=== PATIENT | female | born 1990 | race Two or more races ===

== ENCOUNTER 2019-05-25 18:42 | Emergency (ER) | payer BC ==
--- NOTE | 2019-05-25 19:15 | EDM.PDOC ---
ED HPI GENERAL MEDICAL PROBLEM - General Chief Complaint: Abdominal Pain Stated Complaint: ABD PAIN Time Seen by Provider: 05/25/19 19:05 Source of Information: Reports: Patient History Limitations: Reports: No Limitations - History of Present Illness INITIAL COMMENTS - FREE TEXT/NARRATIVE: HISTORY AND PHYSICAL: History of present illness: Patient is a 28-year-old female presents to the ED today with concern of right upper quadrant pain that is worse after eating. Patient states this has been ongoing for the past 2 weeks but today the last time she ate was 2 PM and she started having upper abdominal pain. Patient states she hesitates to eat due to the pain. Patient states currently the pain is only a 2 out of 10 but knows that if she went to go eat it would return. Patient denies any nausea or vomiting or any other associated symptoms. Patient denies any health history. Patient denies fever, chills, chest pain, shortness of breath, or cough. Denies headache, neck stiff ness, change in vision, syncope, or near syncope. Denies nausea, vomiting, diarrhea, constipation, or dysuria. Has not noted any blood in urine or stool. Patient has been eating and drinking appropriately. Review of systems: As per history of present illness and below otherwise all systems reviewed and negative. Past medical history: As per history of present illness and as reviewed below otherwise noncontributory. Surgical history: As per history of present illness and as reviewed below otherwise noncontributory. Social history: See social history for further information Family history: As per history of present illness and as reviewed below otherwise noncontributory. Physical exam: General: Patient is alert, oriented, and in no acute distress. Patient sitting comfortably on exam table. HEENT: Atraumatic, normocephalic, pupils equal and reactive bilaterally, negative for conjunctival pallor or scleral icterus, mucous membranes moist, TMs normal bilaterally, throat clear, neck supple, nontender, trachea midline. No drooling or trismus noted. No meningeal signs. No hot potato voice noted. Lungs: Clear to auscultation, breath sounds equal bilaterally, chest nontender. Heart: S1S2, regular rate and rhythm without overt murmur Abdomen: Soft, nondistended. Mild right upper quadrant tenderness without guarding. Negative Sawyer sign. Negative for masses or hepatosplenomegaly. Negative for costovertebral tenderness. Pelvis: Stable nontender. Genitourinary: Deferred. Rectal: Deferred. Skin: Intact, warm, dry. No lesions or rashes noted. Extremities: Atraumatic, negative for cords or calf pain. Neurovascular unremarkable. Neuro: Awake, alert, oriented. Cranial nerves II through XII unremarkable. Cerebellum unremarkable. Motor and sensory unremarkable throughout. Exam nonfocal. Notes: Discussed the importance for follow-up with her primary care provider and Gen. surgery. Voices understanding and is agreeable to plan of care. Denies any further questions or concerns at this time. Diagnostics: CBC, CMP, UA, urine hCG, lipase, right upper quadrant ultrasound Therapeutics: None Prescription: None Impression: RUQ pain r/o biliary colic Plan: 1. Eat a low-fat/bland diet until you are able to follow up with primary care or general surgery. 2. Follow-up with your primary care provider or general surgery as discussed. Return to the ED as needed and as discussed. 3. You can alternate ibuprofen and Tylenol as directed for pain and discomfort. Definitive disposition and diagnosis as appropriate pending reevaluation and review of above. abdominal Pain Score (Numeric/FACES): 5 - Related Data Allergies Allergy/AdvReac Type Severity Reaction Status Date / Time No Known Allergies Allergy Verified 05/25/19 19:03 Home Meds: Home Meds . 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: Musculoskeletal History: Reports: None - Past Surgical History HEENT Surgical History: Reports: Oral Surgery Musculoskeletal Surgical History: Reports: Other (See Below) Other Musculoskeletal Surgeries/Procedures:: L ACL Social & Family History - Family History Family Medical History: Noncontributory Cardiac: Reports: Other (See Below) Other Cardiac Family History: maternal grandmother open heart surgery OBGYN: Reports: Endocrine/Metabolic: Reports: Other (See Below) Other Endocrine/Metabolic Family History: Maternal grandmother diabetes ( unknown type 1 or 2) - Tobacco Use Smoking Status *Q: Never Smoker Second Hand Smoke Exposure: No - Caffeine Use Caffeine Use: Reports: None - Recreational Drug Use Recreational Drug Use: No ED ROS GENERAL - Review of Systems Review Of Systems: ROS reveals no pertinent complaints other than HPI. ED EXAM, GENERAL - Physical Exam Exam: See Below (see Dictation) Course - Vital Signs Last Recorded V/S: Last Vital Signs Temp 96.8 F 05/25/19 18:57 Pulse 93 05/25/19 18:57 Resp 16 05/25/19 18:57 BP 122/78 05/25/19 18:57 Pulse Ox 99 05/25/19 18:57 - Orders/Labs/Meds Labs: Laboratory Tests 05/25/19 05/25/19 05/25/19 Range/Units 19:04 19:04 19:20 WBC 8.51 (4.0-11.0) K/uL RBC 4.32 (4.30-5.90) M/uL Hgb 13.1 (12.0-16.0) g/dL Hct 38.5 (36.0-46.0) % MCV 89.1 (80.0-98.0) fL MCH 30.3 (27.0-32.0) pg MCHC 34.0 (31.0-37.0) g/dL RDW Std Deviation 41.9 (28.0-62.0) fl RDW Coeff of Felipa 13 (11.0-15.0) % Plt Count 274 (150-400) K/uL MPV 10.60 (7.40-12.00) fL Neut % (Auto) 52.7 (48.0-80.0) % Lymph % (Auto) 31.3 (16.0-40.0) % Canadian % (Auto) 3.8 (0.0-15.0) % Eos % (Auto) 12.1 H (0.0-7.0) % Baso % (Auto) 0.1 (0.0-1.5) % Neut # (Auto) 4.5 (1.4-5.7) K/uL Lymph # (Auto) 2.7 H (0.6-2.4) K/uL Canadian # (Auto) 0.3 (0.0-0.8) K/uL Eos # (Auto) 1.0 H (0.0-0.7) K/uL Baso # (Auto) 0.0 (0.0-0.1) K/uL Nucleated RBC % 0.0 /100WBC Nucleated RBCs # 0 K/uL Sodium (136-145) mmol/L Potassium (3.5-5.1) mmol/L Chloride (98-107) mmol/L Carbon Dioxide (21.0-32.0) mmol/L BUN (7.0-18.0) mg/dL Creatinine (0.6-1.0) mg/dL Est Cr Clr Drug Dosing mL/min Estimated GFR (MDRD) ml/min Glucose (74-106) mg/dL Calcium (8.5-10.1) mg/dL Total Bilirubin (0.2-1.0) mg/dL AST (15-37) IU/L ALT (14-63) IU/L Alkaline Phosphatase (46-116) U/L Total Protein (6.4-8.2) g/dL Albumin (3.4-5.0) g/dL Globulin (2.6-4.0) g/dL Albumin/Globulin Ratio (0.9-1.6) Lipase (73-393) U/L Urine Color YELLOW Urine Appearance CLEAR Urine pH 6.0 (5.0-8.0) Ur Specific [place] >= 1.030 (1.001-1.035) Urine Protein NEGATIVE (NEGATIVE) mg/dL Urine Glucose (UA) NEGATIVE (NEGATIVE) mg/dL Urine Ketones NEGATIVE (NEGATIVE) mg/dL Urine Occult Blood NEGATIVE (NEGATIVE) Urine Nitrite NEGATIVE (NEGATIVE) Urine Bilirubin NEGATIVE (NEGATIVE) Urine Urobilinogen 1.0 (<2.0) EU/dL Ur Leukocyte Esterase NEGATIVE (NEGATIVE) Urine HCG, Qual NEGATIVE (NEGATIVE) 05/25/19 Range/Units 19:20 WBC (4.0-11.0) K/uL RBC (4.30-5.90) M/uL Hgb (12.0-16.0) g/dL Hct (36.0-46.0) % MCV (80.0-98.0) fL MCH (27.0-32.0) pg MCHC (31.0-37.0) g/dL RDW Std Deviation (28.0-62.0) fl RDW Coeff of Felipa (11.0-15.0) % Plt Count (150-400) K/uL MPV (7.40-12.00) fL Neut % (Auto) (48.0-80.0) % Lymph % (Auto) (16.0-40.0) % Canadian % (Auto) (0.0-15.0) % Eos % (Auto) (0.0-7.0) % Baso % (Auto) (0.0-1.5) % Neut # (Auto) (1.4-5.7) K/uL Lymph # (Auto) (0.6-2.4) K/uL Canadian # (Auto) (0.0-0.8) K/uL Eos # (Auto) (0.0-0.7) K/uL Baso # (Auto) (0.0-0.1) K/uL Nucleated RBC % /100WBC Nucleated RBCs # K/uL Sodium 139 (136-145) mmol/L Potassium 3.6 (3.5-5.1) mmol/L Chloride 104 (98-107) mmol/L Carbon Dioxide 27.2 (21.0-32.0) mmol/L BUN 14 (7.0-18.0) mg/dL Creatinine 0.8 (0.6-1.0) mg/dL Est Cr Clr Drug Dosing 85.83 mL/min Estimated GFR (MDRD) > 60.0 ml/min Glucose 127 H (74-106) mg/dL Calcium 9.0 (8.5-10.1) mg/dL Total Bilirubin 0.3 (0.2-1.0) mg/dL AST 15 (15-37) IU/L ALT 22 (14-63) IU/L Alkaline Phosphatase 98 (46-116) U/L Total Protein 7.7 (6.4-8.2) g/dL Albumin 4.0 (3.4-5.0) g/dL Globulin 3.7 (2.6-4.0) g/dL Albumin/Globulin Ratio 1.1 (0.9-1.6) Lipase 117 (73-393) U/L Urine Color Urine Appearance Urine pH (5.0-8.0) Ur Specific [place] (1.001-1.035) Urine Protein (NEGATIVE) mg/dL Urine Glucose (UA) (NEGATIVE) mg/dL Urine Ketones (NEGATIVE) mg/dL Urine Occult Blood (NEGATIVE) Urine Nitrite (NEGATIVE) Urine Bilirubin (NEGATIVE) Urine Urobilinogen (<2.0) EU/dL Ur Leukocyte Esterase (NEGATIVE) Urine HCG, Qual (NEGATIVE) Departure - Departure Time of Disposition: 20:39 Disposition: Home, Self-Care 01 Clinical Impression: Right upper quadrant pain - Discharge Information Referrals: PCP,Unknown [Primary Care Provider] - Forms: ED Department Discharge Additional Instructions: The following information is given to patients seen in the emergency department who are being discharged to home. This information is to outline your options for follow-up care. We provide all patients seen in our emergency department with a follow-up referral. The need for follow-up, as well as the timing and circumstances, are variable depending upon the specifics of your emergency department visit. If you don't have a primary care physician on staff, we will provide you with a referral. We always advise you to contact your personal physician following an emergency department visit to inform them of the circumstance of the visit and for follow-up with them and/or the need for any referrals to a consulting specialist. The emergency department will also refer you to a specialist when appropriate. This referral assures that you have the opportunity for follow-up care with a specialist. All of these measure are taken in an effort to provide you with optimal care, which includes your follow-up. Under all circumstances we always encourage you to contact your private physician who remains a resource for coordinating your care. When calling for follow-up care, please make the office aware that this follow-up is from your recent emergency room visit. If for any reason you are refused follow-up, please contact the [facility] Emergency Department at and asked to speak to the emergency department charge nurse. [facility] [address] [place] [id number] [facility] [address] [place] [id number] [facility] - General Surgery Professional Building [address] [place] [address], [address] [place] [address] 1. Eat a low-fat/bland diet until you are able to follow up with primary care or general surgery. 2. Follow-up with your primary care provider or general surgery as discussed. Return to the ED as needed and as discussed. 3. You can alternate ibuprofen and Tylenol as directed for pain and discomfort.
[2019-05-25 19:52] LABS: BLOOD UREA NITROGEN,BUN 14 mg/dL (7.0-18.0); CARBON DIOXIDE,CO2 27.2 mmol/L (21.0-32.0); CHLORIDE,CL 104 mmol/L (98-107); GLUCOSE RANDOM 127 mg/dL (74-106); LIPASE 117 U/L (73-393); POTASSIUM,K 3.6 mmol/L (3.5-5.1); SODIUM,NA 139 mmol/L (136-145)
--- NOTE | 2019-05-25 20:35 | US ---
INDICATION: Right upper quadrant abdomen pain TECHNIQUE: Ultrasound abdomen limited. Sonographic images of the right upper quadrant were obtained using schilling-scale and color Doppler images. COMPARISON: None FINDINGS: Liver: Normal in size and echotexture. A 2 cm hyperechoic nodule has ultrasound characteristics consistent with a benign hemangioma. No other liver lesions. Gallbladder: No stones or sludge. Normal wall thickness. No pericholecystic fluid. Common bile duct: 3 mm. Pancreas: Normal. Right kidney: Normal in size. Normal echotexture and cortex. No suspicious masses, stones, or hydronephrosis. IMPRESSION: Unremarkable right upper quadrant ultrasound. No specific finding to explain pain. Dictated by Arturo Fischer MD @ May 25 2019 8:28PM Signed by Dr. Arturo Fischer @ May 25 2019 8:32PM
== END 2019-05-25 20:48 | disposition home or self-care (01) ==
LOC: MW.ED 18:42
DX: R10.11 Right upper quadrant pain (principal); Z98.890 Other specified postprocedural states
CPT/HCPCS: 36415; 76705; 76705-26; 80053; 81003; 81025; 83690; 85025; 99282; 99284-25

== ENCOUNTER 2021-08-20 14:19 | Emergency (ER) | payer BC ==
--- NOTE | 2021-08-20 14:39 | EDM.PDOC ---
ED HPI GENERAL MEDICAL PROBLEM - General Chief Complaint: Respiratory Problem Stated Complaint: COLD SYMPTOMS Time Seen by Provider: 08/20/21 14:23 - History of Present Illness INITIAL COMMENTS - FREE TEXT/NARRATIVE: 30yoF at 31 wks gestation presents with 2 days of cough shortness of breath hoarse voice without sore throat fever or myalgias. No nausea or vomiting. No chest pain. Symptoms are constant slowly worsening over the last 2 days. No exacerbating or alleviating factors radiation or other associated symptoms. - Related Data Allergies Allergy/AdvReac Type Severity Reaction Status Date / Time No Known Allergies Allergy Verified 08/20/21 14:23 Home Meds: Home Meds . 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: Musculoskeletal History: Reports: None - Past Surgical History HEENT Surgical History: Reports: Oral Surgery Musculoskeletal Surgical History: Reports: Other (See Below) Other Musculoskeletal Surgeries/Procedures:: L ACL Social & Family History - Family History Family Medical History: No Pertinent Family History Cardiac: Reports: Other (See Below) Other Cardiac Family History: maternal grandmother open heart surgery OBGYN: Reports: Endocrine/Metabolic: Reports: Other (See Below) Other Endocrine/Metabolic Family History: Maternal grandmother diabetes (unknown type 1 or 2) - Tobacco Use Tobacco Use Status *Q: Never Tobacco User - Caffeine Use Caffeine Use: Reports: None - Recreational Drug Use Recreational Drug Use: No ED ROS GENERAL - Review of Systems Review Of Systems: See Below Free Text/Narrative/Comment: General: No fever. ENT: Per HPI Neck: No neck stiffness. Respiratory: Per HPI Cardiac: No chest pain. Gastrointestinal: No nausea, vomiting or abdominal pain. Urinary: No dysuria. Musculoskeletal: No myalgias/arthralgias. Neurologic: No headache. ED EXAM, GENERAL - Physical Exam Exam: See Below Free Text/Narrative:: General Appearance: No acute distress, appears comfortable Skin: No rash HEENT: Normocephalic/atraumatic, sclera anicteric, mucous membranes moist, hoarse voice but no trismus no submental or sublingual swelling no oropharyngeal erythema or exudate uvula is midline Neck: Normal range of motion Chest and Lungs: Bilateral breath sounds, clear to auscultation Cardiovascular: Regular rate and rhythm Abdomen: Soft, non-tender Back: Normal Musculoskeletal: No edema or tenderness Neurologic: Awake, alert, no obvious deficits, moving all extremities Psychiatric: Appropriate, cooperative Course - Vital Signs Last Recorded V/S: Last Vital Signs Temp 96.9 F 08/20/21 14:23 Pulse 96 08/20/21 14:23 Resp 17 08/20/21 14:23 BP 103/59 L 08/20/21 14:23 Pulse Ox 96 08/20/21 14:23 - Orders/Labs/Meds Labs: Laboratory Tests 08/20/21 Range/Units 14:46 Influenza Type A RNA NEGATIVE (NEGATIVE) RSV RNA (INAAT) NEGATIVE (NEGATIVE) Influenza Type B RNA NEGATIVE (NEGATIVE) SARS-CoV-2 RNA ([place]) POSITIVE H (NEGATIVE) Departure - Departure Time of Disposition: 15:57 Disposition: Home, Self-Care 01 Condition: Good Clinical Impression: COVID-19 - Discharge Information *PRESCRIPTION DRUG MONITORING PROGRAM REVIEWED*: Not Applicable *COPY OF PRESCRIPTION DRUG MONITORING REPORT IN PATIENT SULLY: Not Applicable Instructions: 10 Things You Can Do to Manage Your COVID-19 Symptoms at Home - [facility] (03/18/2021) Referrals: PCP,None [Primary Care Provider] - Forms: ED Department Discharge Additional Instructions: It was the strongest recommendation of myself and Dr. Dominguez that you get set up to receive Regeneron for treatment of your COVID-19. Being seriously ill from COVID-19 would put the health of both you and your baby at risk and there is good data that shows that the Regeneron makes this less likely. You have elected not to be scheduled for Regeneron at this time which is your right. If you change your mind the Regeneron can be given up to 10 days after symptom onset. Please be sure to follow-up with the OB's next week. The following information is given to patients seen in the emergency department who are being discharged to home. This information is to outline your options for follow-up care. We provide all patients seen in our emergency department with a follow-up referral. The need for follow-up, as well as the timing and circumstances, are variable depending upon the specifics of your emergency department visit. If you don't have a primary care physician on staff, we will provide you with a referral. We always advise you to contact your personal physician following an emergency department visit to inform them of the circumstance of the visit and for follow-up with them and/or the need for any referrals to a consulting specialist. The emergency department will also refer you to a specialist when appropriate. This referral assures that you have the opportunity for follow-up care with a specialist. All of these measure are taken in an effort to provide you with optimal care, which includes your follow-up. Under all circumstances we always encourage you to contact your private physician who remains a resource for coordinating your care. When calling for follow-up care, please make the office aware that this follow-up is from your recent emergency room visit. If for any reason you are refused follow-up, please contact the [facility] Emergency Department at and asked to speak to the emergency department charge nurse. Sepsis Event Note (ED) - Evaluation Sepsis Screening Result: No Definite Risk - Focused Exam Vital Signs: Vital Signs Temp Pulse Resp BP Pulse Ox 08/20/21 14:23 96.9 F 96 17 103/59 L 96 - Assessment/Plan Assessment:: 30-year-old female presenting with signs and symptoms most consistent with viral upper respiratory infection. Given her influenza Covid and RSV need to be considered and swab is been ordered. Patient has normal work of breathing she is satting well on room air and nontoxic in appearance. 1540: Pt is COVID positive which explains her symptoms. The patient does not require oxygen at this time. Her WOB is normal. She is not vomiting and appears well hydrated. Will discuss with OB. 1551: Patient discussed in full with Dr. Dominguez. It is her strongest recommendation that the patient receive Regeneron. I passed on this recommendation and I added my own strongest recommendation. Discussed with the patient that there is data that shows that it makes serious illness less likely and that being seriously ill with Covid parts health of both her and her unborn child at risk. Patient expressed understanding of what I was saying but said "Yeah, just because there is data; But, I am going to pass on that I haven't seen it so I do not have confidence in that at this time." The patient was not open to further discussion of the topic. She does agree to follow-up with Dr. Dominguez's office next week.
[2021-08-20 15:30] LABS: CORONAVIRUS COVID-19 NAA POSITIVE (NEGATIVE); INFLUENZA A NAA NEGATIVE (NEGATIVE); INFLUENZA B NAA NEGATIVE (NEGATIVE); RESPIRATORY SYNCYTIAL VIR NAA NEGATIVE (NEGATIVE)
== END 2021-08-20 16:06 | disposition home or self-care (01) ==
LOC: MW.ED 14:19
DX: U07.1 COVID-19 (principal)
CPT/HCPCS: 0241U; 99284

== ENCOUNTER 2023-09-25 21:22 | Emergency (ER) | payer SELFPAY ==
[2023-09-25] MEDS ORDERED: Acetaminophen 500 MG Tab PO ONE (21:43)
[2023-09-25] MEDS ORDERED: Sodium Chloride 0.9% 1,000 ML IV ONE (21:43)
[2023-09-25] MEDS ORDERED: Sodium Chloride 0.9% 2.5 ML Syringe FLUSH PRN (21:43)
[2023-09-25] MEDS ORDERED: Ondansetron 4 MG/2 ML SDV IVPUSH ONE (21:43)
[2023-09-25] MEDS ORDERED: Sodium Chloride 0.9% 10 ML Syringe FLUSH PRN (21:43)
[2023-09-25 22:29] LABS: BASOPHILS ABSOLUTE AUTO 0.02 K/uL (0.00-0.20); BASOPHILS PERCENT AUTO 0.2 % (0.0-1.0); EOSINOPHILS ABSOLUTE AUTO 0.19 K/uL (0.00-0.45); HEMATOCRIT 35.9 % (37.0-47.0); HEMOGLOBIN 12.3 g/dL (12.0-16.0); IMMATURE GRAN ABSOLUTE AUTO 0.01 K/uL (0.00-0.05); IMMATURE GRAN PERCENT AUTO 0.1 % (0.0-0.4); LYMPHOCYTES ABSOLUTE AUTO 3.19 K/uL (1.00-4.80); LYMPHOCYTES PERCENT AUTO 34.3 % (24.0-44.0); MEAN CORPUSCULAR HEMOGLOBIN 30.1 pg (28.0-32.0); MEAN CORPUSCULAR HGB CONC 34.3 g/dL (32.0-36.0); MEAN PLATELET VOLUME 10.6 fL (9.4-12.3); MONOCYTES ABSOLUTE AUTO 0.45 K/uL (0.00-0.80); MONOCYTES PERCENT AUTO 4.8 % (0.0-8.0); NEUTROPHILS ABSOLUTE AUTO 5.45 K/uL (1.80-7.70); NEUTROPHILS PERCENT AUTO 58.6 % (41.0-71.0); PLATELET COUNT,PLT 300 K/uL (150-400); RED BLOOD CELL COUNT 4.08 M/uL (4.10-5.30); WHITE BLOOD CELL COUNT,WBC 9.31 K/uL (3.9-11.3)
[2023-09-25 22:31] LABS: APPEARANCE,URINE CLEAR; BILIRUBIN,URINE NEGATIVE (NEGATIVE); COLOR,URINE YELLOW; GLUCOSE,URINE 100 mg/dL (NEGATIVE); KETONES,URINE NEGATIVE (NEGATIVE); LEUKOCYTE ESTERASE,URINE NEGATIVE (NEGATIVE); NITRITE,URINE NEGATIVE (NEGATIVE); OCCULT BLOOD,URINE LARGE (NEGATIVE); PROTEIN,URINE NEGATIVE (NEGATIVE); UROBILINOGEN,URINE 0.2 EU/dL (<2.0)
[2023-09-25 22:56] LABS: A/G RATIO 0.9 (0.9-1.6); ALBUMIN 3.7 g/dL (3.4-5.0); BILIRUBIN TOTAL 0.4 mg/dL (0.2-1.0); CARBON DIOXIDE,CO2 24.7 mmol/L (21.0-32.0); CREATININE 0.9 mg/dL (0.6-1.0); EST CRCL DRUG DOSING (CG) 73.55 mL/min; PROTEIN TOTAL,TP 7.7 g/dL (6.4-8.2)
[2023-09-25 22:59] LABS: EPITHELIAL CELLS,URINE FEW (NONE-FEW)
[2023-09-25 23:00] LABS: BACTERIA,URINE MODERATE (NEGATIVE)
[2023-09-25] MEDS ORDERED: Cefdinir 300 MG Cap PO ONE (23:22)
== END 2023-09-25 23:33 | disposition home or self-care (01) ==
LOC: MW.ED 21:22
DX: O99.891 Other specified diseases and conditions complicating pregnancy (principal); R10.9 Unspecified abdominal pain; O23.91 Unspecified genitourinary tract infection in pregnancy, first trimester; R82.71 Bacteriuria; Z3A.01 Less than 8 weeks gestation of pregnancy
CPT/HCPCS: 36415; 76801; 80053; 81001; 83690; 84702; 85025; 86900; 86901; 87086; 99284; A9270; J3490; J7030